=== PATIENT | male | born 1960 | race Caucasian/White ===

== ENCOUNTER → 2020-02-09 09:08 | Outpatient (BNVA) | payer OTHER, SELFPAY | PROVIDERS: PCP Internal Medicine; Referring Provider Internal Medicine; Visit Provider Hospitalist | DX: J44.9 Chronic obstructive pulmonary disease, unspecified (principal); J96.10 Chronic respiratory failure, unspecified whether with hypoxia or hypercapnia; R91.8 Other nonspecific abnormal finding of lung field; F17.210 Nicotine dependence, cigarettes, uncomplicated; Z79.899 Other long term (current) drug therapy; Z71.6 Tobacco abuse counseling | CPT/HCPCS: 99212 ==

== ENCOUNTER 2020-07-05 11:02 | Outpatient (REF) | payer OTHER, SELFPAY ==
--- NOTE | ~2020-07-05 | CT_ITS ---
EXAMINATION: CT CHEST WITHOUT CONTRAST CLINICAL INFORMATION: Other nonspecific abnormal finding lung field COMPARISON: None TECHNIQUE: Multidetector volumetric CT imaging of the chest was done. Axial MIP volume rendering provided. Sagittal and coronal reformatted images were obtained. This CT examination was performed using dose optimization techniques as appropriate, variously including the following: *Automated exposure control *Adjustment of mA and/or kV according to patient size (this includes techniques or standardized protocols for targeted exams where dose is matched to indication/reason for exam; i.e. 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 LUNGS: There is mild biapical pleural and parenchymal scarring. There are multiple bilateral pulmonary nodules. Largest pulmonary nodules measure 4 mm in the right lung apex axial image 73 series 4 and in the left lower lobe axial image 442 series 4. There are small lung cysts. There are focal areas of bronchiectasis. There are scattered areas of bronchial wall thickening and increased peribronchial attenuation. There is a thick walled cavitary nodule in the left upper lobe that measures 1 x 1.3 x 2 cm in AP transverse and longitudinal dimension axial image 177 series 4 and coronal reconstructed image 47. Cavitary component may be related to bronchial dilatation. Attention on follow-up is recommended. There are other smaller similar-appearing MEDIASTINUM: The mediastinum is normal. PLEURA: There is no pleural effusion. No pleural mass or thickening. AXILLA: No lymphadenopathy. UPPER ABDOMEN: Unremarkable. OSSEOUS STRUCTURES: Unremarkable. CT/CT chest wo con IMPRESSION: Small pulmonary nodules, largest measuring 4 mm. Small lung cysts. Scattered areas of focal bronchiectasis and bronchial wall thickening. 1 x 1.3 x 2 cm thick-walled cavitary left upper lobe pulmonary nodule. Cavitary appearance may be related to focal bronchiectasis. Attention on follow-up recommended.
== END 2020-07-05 11:03 | disposition home or self-care (01) ==
LOC: HO.CT 11:02
PROVIDERS: PCP Internal Medicine; Visit Provider Hospitalist
DX: R91.8 Other nonspecific abnormal finding of lung field (principal)
CPT/HCPCS: 71250

== ENCOUNTER 2020-07-22 08:47 | Outpatient (REF) | payer OTHER, SELFPAY ==
--- NOTE | 2020-07-22 12:58 | PFT_ITS ---
Forced vital capacity is normal. FEV1, [id number], and MVV were markedly decreased. Bronchodilator challenge not given because the patient had used albuterol a few hours prior to the test. Total lung capacity, normal. Residual volume slightly increased. Diffusion capacity is slightly decreased. CONCLUSION: 1. Severe obstructive airway disorder. 2. Clinical correlation recommended. MD ALEXI Crouch/UMANG / [id number]
== END 2020-07-22 08:48 | disposition home or self-care (01) ==
LOC: HO.RESP 08:47
PROVIDERS: PCP Internal Medicine; Visit Provider Hospitalist
DX: R91.8 Other nonspecific abnormal finding of lung field (principal); J44.9 Chronic obstructive pulmonary disease, unspecified
CPT/HCPCS: 94010; 94727; 94729; 99212

== ENCOUNTER 2021-01-05 10:39 | Outpatient (REF) | payer OTHER, SELFPAY ==
--- NOTE | ~2021-01-05 | CT_ITS ---
EXAMINATION: CT CHEST WITHOUT CONTRAST CLINICAL INFORMATION: Follow up pulmonary nodules. COMPARISON: Previous chest CT scan June 2020. TECHNIQUE: Multidetector volumetric CT imaging of the chest was done. Axial MIP volume rendering provided. Sagittal and coronal reformatted images were obtained. This CT examination was performed using dose optimization techniques as appropriate, variously including the following: *Automated exposure control *Adjustment of mA and/or kV according to patient size (this includes techniques or standardized protocols for targeted exams where dose is matched to indication/reason for exam; i.e. extremities or head) *Use of iterative reconstruction technique DLP: 172 mGy-cm FINDINGS: LUNGS: There is biapical pleural and parenchymal scarring. There are multiple small bilateral pulmonary nodules. These do not appear appreciably changed from June 2020 exam. Largest pulmonary nodules measure 4 mm in the left lower lobe axial image 377 and right upper lobe axial image 75 series 6. There are small calcified nodules in the right upper and right lower lobes that are stable. There are small lung cysts. Lung cysts may be related to dilated bronchioles. There is interval decrease in size in the thick-walled cavitary nodule in the central left upper lobe. Again, this may be related to focal bronchial dilatation. This measures 0.4 x 1.1 cm in transverse and longitudinal dimension coronal reconstructed image 48 compared to 0.9 x 1.6 cm coronal reconstructed image 46 series 5 and 4 mm in AP dimension sagittal reconstructed image 46 compared to 1.1 cm in AP dimension sagittal reconstructed image 39 series 6. There is a new more apparent solid nodular component or possibly a new nodule or intrapulmonary lymph node that measures approximately 5 mm axial image 153 series 6 and attention on follow-up is recommended. No new pulmonary nodule is seen. No endobronchial or endotracheal lesion is seen. MEDIASTINUM: There are small mediastinal lymph nodes that are stable. The heart does not appear enlarged. There is no pericardial effusion. The thoracic aorta is normal in caliber. The pulmonary arteries are upper normal in size. PLEURA: There is no pleural effusion. No pleural mass or thickening. AXILLA: No lymphadenopathy. UPPER ABDOMEN: There is a small small 1 cm low-attenuation lesion in the lateral segment of the left lobe of the liver axial image 68 series 3 that is stable and may represent a small cyst. There is diverticulosis of the colon. OSSEOUS STRUCTURES: Unremarkable. CT/CT chest wo con IMPRESSION: Stable biapical pleural and parenchymal scarring. Stable small pulmonary nodules. Stable small cystic areas in the lungs likely related to focal bronchiolectasis. Interval decrease in size in the dominant cavitary lesion probably related to focal bronchiectasis in the left upper lobe. This has a new or more apparent solid component measuring 5 mm and attention on follow-up is recommended.
== END 2021-01-05 10:40 | disposition home or self-care (01) ==
LOC: HO.CT 10:39
PROVIDERS: PCP Internal Medicine; Visit Provider Hospitalist
DX: R91.8 Other nonspecific abnormal finding of lung field (principal)
CPT/HCPCS: 71250

== ENCOUNTER → 2021-02-04 13:38 | Outpatient (BNVA) | payer OTHER, SELFPAY | PROVIDERS: PCP Internal Medicine; Visit Provider Hospitalist | DX: J96.11 Chronic respiratory failure with hypoxia (principal); J41.0 Simple chronic bronchitis; R91.8 Other nonspecific abnormal finding of lung field; F17.200 Nicotine dependence, unspecified, uncomplicated | CPT/HCPCS: 99212 ==

== ENCOUNTER → 2022-02-02 15:33 | Outpatient (BNVA) | payer OTHER, SELFPAY | PROVIDERS: PCP Internal Medicine; Visit Provider Hospitalist | DX: Z23 Encounter for immunization (principal) | CPT/HCPCS: 90471; 90686 ==

== ENCOUNTER 2022-06-02 10:16 | Outpatient (REF) | payer MEDICARE, MEDICAID, SELFPAY ==
--- NOTE | ~2022-06-02 | CT_ITS ---
EXAMINATION: CT CHEST WITHOUT CONTRAST CLINICAL INFORMATION: R91.8 - Other nonspecific abnormal finding of lung field COMPARISON: CT chest noncontrast 01/05/2021, 07/05/2020 TECHNIQUE: Multidetector volumetric CT imaging of the chest is performed without intravenous contrast. Axial MIP volume rendering provided. Sagittal and coronal reformatted images were obtained. This CT examination was performed using dose optimization techniques as appropriate, variously including the following: *Automated exposure control *Adjustment of mA and/or kV according to patient size (this includes techniques or standardized protocols for targeted exams where dose is matched to indication/reason for exam; i.e. extremities or head) *Use of iterative reconstruction technique DLP: 315 mGy-cm FINDINGS: LUNGS: There are scattered bilateral small stable pulmonary nodularity, some are related to calcified granulomata, stable from 07/05/2020. The 5 mm solid opacity for follow-up central inner left upper lobe, appears stable from prior study 01/05/2021 (current series 4 image 141/667, coronal 45, sagittal 52). There is no surrounding groundglass component. This resides in an area of branching vessels and some of the dimension is likely vascular. There is no increase or suspicious changes from prior CT. This may be reassessed again at next follow-up CT. There is no interval bronchiectasis. Again, there are scattered small bilateral cystic foci throughout both lungs. There is no airspace consolidation or interval groundglass opacity. No interval pulmonary mass or significant nodule. MEDIASTINUM: No interval hilar or mediastinal adenopathy. Heart size normal. No pericardial effusion. Thoracic aorta normal in caliber. CORONARY ARTERY CALCIFICATION: None visualized on this study. PLEURA: There is no pleural effusion. No pleural mass or thickening. AXILLA: No lymphadenopathy. UPPER ABDOMEN: Unremarkable. Small stable subcapsular cyst medial left hepatic lobe. OSSEOUS STRUCTURES: Unremarkable. CT/CT chest wo IV con IMPRESSION: -Nodule for follow-up central inner left upper lobe stable from prior CT 01/05/2021. -Scattered bilateral pulmonary nodularity stable from prior CT 07/05/2020. -No new nodule or mass, infiltrate, or effusion. -Scattered small pulmonary cystic changes similar to prior exams. -Fleischner guidelines below. Reference: The Fleischner Society recommendations for management of incidentally detected pulmonary nodules in adults age 35 and greater are based on average nodule size and patient risk category. The recommendations do not apply to lung cancer screening, patients with immunosuppression, or patients with known primary cancer. Multiple solid nodules average size < 6 mm: Low Risk Patient: No routine follow-up. High Risk Patient: Optional CT at 12 months. Use most suspicious nodule as guide to management. Follow-up intervals may vary according to size and risk.
== END 2022-06-02 10:17 | disposition home or self-care (01) ==
LOC: HO.CT 10:16
PROVIDERS: PCP Internal Medicine; Visit Provider Hospitalist
DX: R91.8 Other nonspecific abnormal finding of lung field (principal)
CPT/HCPCS: 71250

== ENCOUNTER → 2022-06-13 11:07 | Outpatient (BNVA) | payer MEDICARE, MEDICAID, SELFPAY | PROVIDERS: PCP Internal Medicine; Visit Provider Hospitalist | DX: R91.8 Other nonspecific abnormal finding of lung field (principal); J96.11 Chronic respiratory failure with hypoxia; J41.0 Simple chronic bronchitis; F17.200 Nicotine dependence, unspecified, uncomplicated | CPT/HCPCS: 94618; 99212 ==

== ENCOUNTER 2024-01-01 10:56 | Outpatient (AMB) | payer MEDICARE, MEDICAID, SELFPAY ==
[2024-01-01 11:03] VITALS: BP 128/60; PULSE 67; O2SAT 95; BMI 24.8
--- NOTE | 2024-01-01 11:03 | A.OFFVIS_ITS ---
Vital Signs 01/01/24 11:03 Height 6 ft 2 in Weight 192 lb 14.472 oz BMI 24.8 BP 128/60 Blood Pressure Location Rt brachial Position Sitting Pulse 67 Pulse Source Pulse Oximeter Pulse Oximetry (%) 95 Oxygen Delivery Method Room Air Intake Visit Reasons: copd Software Requirements Engineer Required: No Allergies Dust Allergy (Severe, Uncoded 01/01/24 11:05) Shortness of Breath Pollen Allergy (Severe, Uncoded 01/01/24 11:05) Shortness of Breath HPI Comments Details: The patient is a 63-year-old gentleman with known severe COPD in addition to active smoking. The patient has been doing well for the last few months. Back in the spring he did have a significant exacerbation of his COPD requiring prednisone and also antibiotics. He was able to return to his baseline. He does have productive cough usually in the morning. [id number] in severity. Does clear. He also has dyspnea on exertion mild to moderate with activity. Does improve after using use inhalers and also resting. Continues to take his respiratory therapy as prescribed. We did talk about smoking cessation offered different options and alternatives to smoking such as the Nicotrol inhaler or the nasal spray. However, the patient is not ready to quit. He was also offered the lung cancer screening program S the will be a very good candidate based on his smoking history and his age. However, the patient is not interested at this time. 02/09/2020 the patient is here for pulmonary follow-up visit. He continues to have dyspnea on exertion. Moderate severity. Does continue to use the oxygen with good effect. Has been using the trilogy inhaler. Sometimes he feels like he needs more steroids. We did talk about the stronger does trilogy that did come out. At this point is going to think about it. In the meantime he continues to smoke cigarettes. He understands how much harm this is doing to his body. He is going to try to cut down further. He is not ready to quit completely unfortunately. We did review his last CT scan of the chest done back in June 2018 demonstrating multiple pulmonary nodules. In view of his ongoing smoking the patient needs to have does nodules tree checked again. Plan to do in 6 months with his follow-up appointment. In the meantime he is going to continue with the oxygen therapy with activity. I did recommend that he starts exercising more along with the oxygen use to further strengthen his respiratory muscles. 07/22/2020 the patient is here for pulmonary follow-up visit. The patient overall has been doing okay. He continues to have shortness of breath moderate severity. He is still enjoying the chemo golf. He does use a cart. The patient did have a pulmonary function study today. Appears to have a severe obstruction. In addition to that did have a CT scan of the chest demonstrating at cavitary looking nodule density in the left upper lobe. This area could be concerning for a malignancy verses a focal area of bronchiectasis with mucous blockage. At this point we did discuss different options to further address this issue. The patient is not interested in undergoing any surgeries. The patient is interested in the possibility of stereotactic radiation if that is needed. The patient is willing to have a repeat CT scan of the chest in 6 months to further address this area. If the patient develops any worsening symptoms the patient is to call so we can address it sooner. Patient understands that this is a concerning finding. 02/04/2021 the patient is here for a pulmonary follow-up visit. Overall the patient has been doing well. He continues to stay active playing golf. He had 1 episode where he started developing significant chest tightness and shortness of breath. He did require short course of prednisone. He was also using his rescue inhaler several times a day for those couple days. His symptoms improved. At this point he is back to his baseline medications. He is trying to stay active playing golf. In the meantime he did have a repeat CT scan of the chest that we personally reviewed here in the office. He did have a cavitar y nodular density that was concerning in nature. On his repeat CT scan is seems like the cavity component has decreased name may have been a cross-sectional airway within the nodular density. The nodule still present although seems to be slightly smaller in size. The patient unfortunately continues to smoke cigarettes. He is trying to cut down some. He is not ready to quit. based on the CT scan findings will follow-up with repeat CT scan in 1 years time. Unless, the patient develops any worsening symptoms he is to call for an earlier evaluation. 02/02/2022 the patient is here for pulmonary follow-up visit. Overall the patient continues to do well. He continues to walk regularly and also played golf. he continues to respond positively to the Trelegy. He does use it as pre scribed. The patient also has a rescue inhaler. The generic albuterol does not help him as much as Ventolin. I will send Ventolin now substitutions to the pharmacy. We did review his last CT scan of the chest. Was done back in February 2021 demonstrating the interval improvement of the cavitary nodular density and also other pulmonary nodules. He is due for CT scan now. He would like to wait till the springtime. Therefore, will request that then. the patient understands that his CT scan should be done a year from his last 1. Therefore if he changes his mind or if he develops any symptoms we can always requested earlier. Otherwise patient is without any other complaints. 06/13/2021 the patient is here for a pulmonary follow-up visit. The patient overall continues to do well for himself. Continues to have dyspnea with minimal activity. He does try to play golf. He has a hard time going up a flight of stairs or going up an incline. Does developed shortness of breath mo derate severity. Usually needs take a break after flight of stairs. The patient does have oxygen that he can use with activity. In the office we did check his oxygen levels with a 6 minute walk test. The patient still desaturates when exerting herself down to 88%. Therefore he will continue to use the oxygen with activity at this time. He did undergo CT scan of the chest demonstrating stable pulmonary nodule which is reassuring. He does have the evidence of the emphysematous changes. He also has significant was a pattern likely secondary to small airways disease. As far as smoking he did try cutting down for about a week. He did well but then he started developing significant arthralgias and then decided to go back to smoking. His arthritis symptoms did improve when he started up again. 01/01/2024 the patient is here for a pulmonary follow-up visit. Overall he is doing well. Back in October, however, the patient did have a respiratory illness. The patient was having worsening chest congestion shortness of breath wheezing chest tightness. Moderate severity. He did start using the nebulizer more often and also had a or prescription for azithromycin and prednisone he did started. He did start feeling better and so therefore he did not call. Currently he is back to his baseline. We did look at imaging studies. His last CT scan through the lung cancer screening was back in 06/12/2022. We did review it. Appears that he has pulmonary nodules although the been stable. He does have some emphysema. He would like to hold off until spring to get his repeat CT scan. I think that is reasonable. I will reach out to the lung cancer screening program to make sure that they can schedule him for then. Otherwise she is going to continue with his current respiratory therapy. He will get the flu shot today. He should also get the Prevnar 20 vaccine. He can do that at the pharmacy at some point. [facility] Medical History (Updated 07/22/20 @ 19:46 by Isaias Gray MD) Tobacco dependence Pulmonary nodules Chronic respiratory failure COPD (chronic obstructive pulmonary disease) Social History (Updated 02/09/20 @ 09:18 by CLEMENTE Bailey) Years Smoked: 50 years Review of Systems Const Denies night sweats ENT Denies change in voice, Denies lip swelling, Denies mouth pain, Reports nasal congestion, Reports nasal discharge and Denies tongue swelling Card Denies chest pain and Reports dyspnea on exertion Resp Reports cough and Reports dyspnea on exertion GI Denies abdominal pain Musc Denies no additional complaints Neuro Denies Neuro-related abnormal movements Psych Denies no additional complaints [place]/Lymph Denies easy bleeding and Denies lymphadenopathy Aller/Immun Denies lip swelling and Denies tongue swelling Physical Exam Vital Signs: Last Vital Signs Pulse 67 01/01/24 11:03 BP 128/60 01/01/24 11:03 Pulse Ox 95 01/01/24 11:03 Oxygen Delivery Method Room Air 01/01/24 11:03 BMI result Body Mass Index 24.8 Const General: alert Neck Neck: Yes normal visual inspection, Yes full ROM and Yes no lymphadenopathy Chest Chest palpation & inspection: normal inspection of the chest Resp Effort & Inspection: normal respiratory effort Auscultation: diminished lung sounds Cardio Rate: regular rate Rhythm: regular rhythm Heart sounds: S1 normal heart sound present and S2 normal heart sound present GI Palpation (GI): Soft to palpation and nontender Auscultation: normal bowel sounds Skin General skin exam: rashes and/or lesions noted Office Procedures Flu Questionnaire Does the patient have a severe egg allergy?: No Does the patient have severe life threatening allergies?: No Does the patient have a fever or illness today?: No Has the patient ever had Guillain-Laurel Syndrome?: No Has the patient ever had any past reaction to a flu shot?: No Quality Reporting (2019) Adult ([facility] 138/05/17/68) Smoking risk assessment performed?: Yes Assessment & Plan Assessment & Plan (1) Tobacco dependence: Code(s): F17.200 - Nicotine dependence, unspecified, uncomplicated Category: Medical (2) Pulmonary nodules: Code(s): R91.8 - Other nonspecific abnormal finding of lung field Category: Medical (3) Chronic respiratory failure: Code(s): J96.10 - Chronic respiratory failure, unspecified whether with hypoxia or hypercapnia Category: Medical Qualifiers: Respiratory failure complication: hypoxia Qualified Code(s): J96.11 - Chronic respiratory failure with hypoxia (4) COPD (chronic obstructive pulmonary disease): Code(s): J44.9 - Chronic obstructive pulmonary disease, unspecified Category: Medical Qualifiers: COPD type: chronic bronchitis Chronic bronchitis type: simple Qualified Code(s): J41.0 - Simple chronic bronchitis Plan Continue respiratory : Trelegy PEYTON as needed LDCT program next year 05/2024 per pt's request Tobacco cessation start Fluticasone nasal spray continue oxygen supplementation with activity and sleep Influenza vaccine today Prevnar 20 vaccine at the pharmacy F/U 12 months Orders: Orders Influenza [id number] Immunization Today J41.0 - Simple chronic bronchitis Medications: New prednisone PO daily; Take 2 tabs daily x 5 days, then 1 tablet daily x 5 days 15 tabs 0RF 10 days azithromycin 500 mg PO DAILY 5 tabs 0RF 5 days albuterol sulfate 90 mcg/actuation (Ventolin HFA) 2 puffs inhalation QID PRN 18 grams 11RF shortness of breath or wheezing 30 days fluticasone propionate 50 mcg/actuation 2 sprays intranasal DAILY 15.8 mL 11RF 30 days J31.0 - Chronic rhinitis Coding Level of Care Code Est Pt Level 4 (92710) Diagnoses Tobacco dependence F17.200 Pulmonary nodules R91.8 Chronic respiratory failure with hypoxia J96.11 Respiratory failure complication: hypoxia Simple chronic bronchitis J41.0 COPD type: chronic bronchitis Chronic bronchitis type: simple Time Spent (min) 17
== END 2024-01-01 11:34 | disposition home or self-care (01) ==
PROVIDERS: PCP Internal Medicine; Visit Provider Hospitalist
DX: F17.200 Nicotine dependence, unspecified, uncomplicated (principal); R91.8 Other nonspecific abnormal finding of lung field; J96.11 Chronic respiratory failure with hypoxia; J41.0 Simple chronic bronchitis
CPT/HCPCS: 99214

== ENCOUNTER → 2024-01-01 10:56 | Outpatient (BNVA) | payer MEDICARE, MEDICAID, SELFPAY | PROVIDERS: PCP Internal Medicine; Visit Provider Hospitalist | DX: J41.0 Simple chronic bronchitis (principal); Z23 Encounter for immunization; J96.11 Chronic respiratory failure with hypoxia; R91.8 Other nonspecific abnormal finding of lung field; F17.210 Nicotine dependence, cigarettes, uncomplicated | CPT/HCPCS: 90471; 90656; 99212 ==

== ENCOUNTER 2024-06-27 10:06 | Outpatient (AMB) | payer MEDICARE, MEDICAID, SELFPAY ==
--- NOTE | 2024-06-27 08:02 | MHC.OFFVIS ---
Intake Visit Reasons: Current Smoker Allergies Dust Allergy (Severe, Uncoded 01/01/24 11:05) Shortness of Breath Pollen Allergy (Severe, Uncoded 01/01/24 11:05) Shortness of Breath HPI HPI Current Smoker: Details: Initial visit for this 64yo smoker with a 40+PYH. Patient started smoking at age 14 for 50 years at 1ppd. Now at 3/4ppd. . Denies marijuana use. Denies second hand smoke exposure. Denies exposure to chemicals or substances like asbestos. . Denies known family history of lung cancer. Personal history of Prostate cancer - age 50. S/p Radical prostatectomy with curative effect. . Denies chest CT in last year. 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 . Denies recent travel outside the [place]. Denies recent respiratory illness or recent hospitalization for respiratory issues. Denies testing positive for COVID. Admits receiving COVID Vaccine. . Denies fever, chills, new/worsening cough, hemoptysis, hoarseness or dysphagia. Denies significant chest pain, significant dyspnea or unintentional weight loss. Patient Lung Cancer Screening Questionnaire reviewed with patient by provider. . Shared Decision Making Completed. Patient meets criteria. Discussed in detail with patient, the risk vs benefit of LDCT screening. Patient consents to proceed with scan. Discussed smoking cessation. PFSH Medical History (Updated 06/27/24 @ 10:19 by Sonia Pedro PA-C) History of prostate cancer Hypogammaglobulinemia Hypertension Hyperlipidemia Pulmonary nodules Chronic respiratory failure COPD (chronic obstructive pulmonary disease) Nicotine dependence, cigarettes, uncomplicated Hemorrhoids Surgical History (Updated 06/27/24 @ 10:18 by Sonia Pedro PA-C) History of radical prostatectomy History of appendectomy History of tonsillectomy Social History (Updated 06/27/24 @ 10:25 by Sonia Pedro PA-C) Patient Tobacco Use Status: Current everyday Tobacco user Cigarettes Per Day: 12 Years Smoked: (onset 14yo, 1ppd x 50yrs, now 3/4ppd - 40+PYH) Assessment & Plan Assessment & Plan (1) Nicotine dependence, cigarettes, uncomplicated: Comment: (onset 14yo, 1ppd x 50yrs, now 3/4ppd - 40+PYH) Code(s): F17.210 - Nicotine dependence, cigarettes, uncomplicated Category: Medical Plan: - SDM visit completed today in office. - Patient meets criteria for LDCT for lung cancer screening purposes and is asymptomatic. - Smoking cessation counseling offered. Patients can always call [phone]. - Will arrange for a LDCT scan of the chest for screening purposes at [facility]. - Risks, benefits, and alternatives were discussed in detail and the patient agrees to proceed. - Risks discussed include but are not limited to: radiation exposure, anxiety during testing and while awaiting results, false negatives, false positives and possibility of additional intervention such as further imaging or surgical procedures for benign disease. - Benefits are obviously detection of lung cancer at an early stage which can lead to improved outcomes. - Discussed the importance of screening program compliance with adherence to yearly LDCT scan as scheduled - or sooner interval scans for personalized screening regimen. - Discussed follow up plan. Our office will send a letter discussing results and if needed set up phone call and office visit based on CT findings. - Patient educated on results categorization and the management decisions for suspicious findings potentially found on the screening LDCT scan. Any patient with a Lung RADS score of 3 or 4 will be reviewed by a multidisciplinary team at [facility] to form a plan of action in regards to scan findings. - If further work up is warranted for a suspicious lung finding this will be followed by the Lung Cancer Screening program in conjunction with the Thoracic Surgery Department at [facility]. - A copy of the office note and LDCT will be sent to the patient's PCP - as well as documentation on any associated further plans of care. - Incidental findings on LDCT are the PCP's responsibility. These findings are indicated with an S finding on the LDCT Assessment. A note discussing the findings will be sent to the PCP who is then responsible for further management. - All questions answered.? Coding Level of Care Code Lung Cancer Screening G0296 Diagnoses Nicotine dependence, cigarettes, uncomplicated F17.210
--- OUTSIDE RECORDS SUMMARY | 2024-06-27 11:31 | XMS_ITS | Clinical Summary ---
Author Organization [facility], Address [address] [place] [address] [place] [address] Phone Care Team Providers Care Checking Department Supervisor Name Role Phone Domenic Nur MD Primary Care Provider [phone] Medications sildenafil (VIAGRA) 100 MG tablet Take 1 tablet by mouth 4 Active amLODIPine (NORVASC) 10 MG tablet Take 10 mg by mouth 1 (one) time each day Active atorvastatin (LIPITOR) 40 MG tablet Take 40 mg by mouth 1 (one) time each day Active Fluticasone-Ume clidin-Vilant 200-62.5-25 MCG/INH aerosol powder Inhale 1 puff 1 (one) time each day Active aspirin 81 MG chewable tablet Chew 81 mg 1 (one) time each day Active albuterol (2.5 MG/3ML) 0.083% nebulizer solution USE 1 VIAL VIA NEBULZIER EVERY 6 HRS 3 Active Active Problems Problem Noted Date Diagnosed Date Hyperkalemia 10/18/2021 Asthma 02/24/2014 Overview (10/18/2021): Asthma Malignant neoplasm of prostate 02/27/2012 Overview (10/18/2021): Prostate cancer Social History Tobacco Use Types Packs/Day Years Used Date Smoking Tobacco: Every Day Alcohol Use Standard Drinks/Week Comments No 0 (1 standard drink = 0.6 oz pur e alcohol) Sex and Gender Information Value Date Recorded Sex Assigned at Not on file Legal Sex Male 3:53 PM EST Gender Identity Not on file Sexual Orientation Not on file Last Filed Vital Signs Vital Sign Reading Time Taken Comments Blood Pressure 120/70 10/15/2023 2:07 PM EDT Pulse - - Temperature - - Respiratory Rate - - Oxygen Saturation - - Inhaled Oxygen Concentration - - Weight 102 kg (224 lb 12.8 oz) 02/19/2019 12:00 PM EST Height - - Body Mass Index - - Plan of Treatment Upcoming Encounters Date Type Department Care Team (Late st Contact Info) Description 10/17/2024 1:45 PM EDT Office Visit [facility], [address] [place] [address] Bahman Cantu MD [address] [place] [address] [place] [address] Health Maintenance Due Date Last Done Comments Pneumococcal Vaccine: Pediat rics (0 to 5 Years) and At-Risk Patients (6 to 64 Years) (1 of 2 - PCV) 1968 Colorectal Cancer Screening: Annual FOBT 2011 Colorectal Cancer Screening: Colonoscopy 2011 Colorectal Cancer Screening: Sigmoidoscopy 2011 Influenza Vaccine (#1) 2023 Hepatitis B Vaccine Aged Out No longe r eligible based on patient's age to complete this topic Insurance [place]ICAID [place] MEDICARE Care Teams Checking Department Supervisor Relationship Specialty Start Date End Date Domenic Nur MD [address] [place] [address] [address] [place] [address] PCP - General Internal Medicine 11/04/21
--- OUTSIDE RECORDS SUMMARY | 2024-06-27 11:31 | XMS_ITS | Encounter Summary ---
Author Organization [facility] Address [address] [address] Phone Care Team Providers Care Buildings And Grounds Superintendent Name Role Phone Domenic Nur MD Primary Care Provider [phone] Encounter Details Date Type Department Care Team (Late st Contact Info) Description 02/02/2022 Documentation Only [facility] [address] [place] [address] Marybeth Lopez [address] [place] [address] Social History Tobacco Use Types Packs/Day Years Used Date Smoking Tobacco: Every Day Alcohol Use Standard Drinks/Week Comments No 0 (1 standard drink = 0.6 oz pur e alcohol) Sex and Gender Information Value Date Recorded Sex Assigned at Not on file Legal Sex Male 3:53 PM EST Gender Identity Not on file Sexual Orientation Not on file documented as of this encounter Plan of Treatment Upcoming Encounters Date Type Department Care Team (Late st Contact Info) Description 10/17/2024 1:45 PM EDT Office Visit [facility] [address] [place] [address] Bahman Cantu MD [address] [place] [address] [place] [address] documented as of this encounter Visit Diagnoses Not on filedocumented in this encounter Care Teams Buildings And Grounds Superintendent Relationship Specialty Start Date End Date Domenic Nur MD [address] [facility] [address] [place] [address] PCP - General Internal Medicine 11/04/21 documented as of this encounter
== END 2024-06-27 10:41 | disposition home or self-care (01) ==
LOC: HO.HPS 10:07
PROVIDERS: PCP Internal Medicine; Referring Provider Hospitalist; Visit Provider Physician Assistant Medical
DX: F17.210 Nicotine dependence, cigarettes, uncomplicated (principal)
CPT/HCPCS: G0296

== ENCOUNTER 2024-06-27 10:24 | Outpatient (REF) | payer MEDICARE, MEDICAID, SELFPAY ==
--- NOTE | ~2024-06-27 | CT_ITS ---
CLINICAL HISTORY: F17.210 - Nicotine dependence, cigarettes, uncomplicated CT lung cancer screening Technique: Axial CT images of the chest using low-dose technique. Effective radiation dose: DLP 51.1 mGy. Cm, CTDIvol 1.14 mGy Referring provider counseled the patient on shared decision-making for LDCT screening. Additional counseling was provided on smoking cessation. Comparison: 06/02/2022 Findings: Lung nodules RUL: None RML: None RLL: Stable 2 mm nodule image 132. DOTTY: 5 mm peribronchial solid nodular opacity central inner left upper lobe stable from prior exam ( sequence 5 axial image number 143/667 ) Lingula: None LLL: Stable 2 mm nodule image 118. COPD: Centrilobular emphysema. Pleural spaces: Stable biapical pleural-parenchymal scarring. Coronary artery calcifications: None Limited upper abdomen: Stable subcentimeter probable hepatic cyst left lobe. Other: None. Impression: LungRADS 2 - Benign Appearance: Continue annual screening with low dose Chest CT in 12 months. ##L2# ACR LungRADS Categories Category 1: Normal; continue annual screening Category 2: Benign appearance or behavior, continue annual screening Category 3: Probably benign, [address] recommended Category 4A: Suspicious, [address] recommended; may consider PET/CT Category 4B: Suspicious, Additional diagnostics and/or tissue sampling recommended Category 4X: Suspicious, Additional diagnostics and/or tissue sampling Category 0: Recalls (incomplete screen due to Incomplete coverage, Noise, Respiratory motion, Expiration, Obscured by acute abnormality) This document has been electronically signed by: Ravin Judge MD on 06/27/2024 17:21:36
--- OUTSIDE RECORDS SUMMARY | 2024-06-27 11:51 | XMS_ITS | Clinical Summary ---
Author Organization [facility], Address [address] [place] [address] [place] [address] Phone Care Team Providers Care Rivet Sorter Name Role Phone Domenic Nur MD Primary Care Provider [phone] Medications sildenafil (VIAGRA) 100 MG tablet Take [...] Visit [facility] [place], [address] [place] [address] Bahman Cantu MD [address] [place] [address] [place] [address] Health Maintenance Due Date Last [...] topic Insurance [place] Care Teams Rivet Sorter Relationship Specialty Start Date End Date Domenic Nur MD [address] [place] [address] [address] [place] [address] PCP - General Internal Medicine 11/04/21
--- OUTSIDE RECORDS SUMMARY | 2024-06-27 11:51 | XMS_ITS | Encounter Summary ---
Author Organization [facility] Address [address] [address] Phone Care Team Providers Care District Adviser Name Role Phone Domenic Nur MD Primary Care Provider [phone] Encounter Details Date Type Department Care Team (Late st Contact Info) Description 02/02/2022 Documentation Only [facility] [address] [place] [address] Marybeth Lopez [address] [place] [address] Social History Tobacco Use Types [...] Visit [facility] [address] [place] [address] Bahman Cantu MD [address] [place] [address] [place] [address] documented as of this encounter Visit Diagnoses Not on filedocumented in this encounter Care Teams District Adviser Relationship Specialty Start Date End Date Domenic Nur MD [address] [facility] [address] [place] [address] PCP - General Internal Medicine 11/04/21 documented as of this encounter
== END 2024-06-27 10:25 | disposition home or self-care (01) ==
LOC: HO.CT 10:24
PROVIDERS: PCP Internal Medicine; Visit Provider Physician Assistant Medical
DX: Z12.2 Encounter for screening for malignant neoplasm of respiratory organs (principal); F17.210 Nicotine dependence, cigarettes, uncomplicated
CPT/HCPCS: 71271; G0296

== ENCOUNTER → 2024-06-27 10:27 | Outpatient (BNV) | payer MEDICARE, MEDICAID, SELFPAY | PROVIDERS: PCP Internal Medicine; Visit Provider Radiology Diagnostic Radiology | DX: F17.210 Nicotine dependence, cigarettes, uncomplicated (principal) | CPT/HCPCS: 71271 ==

== ENCOUNTER 2024-12-30 10:51 | Outpatient (AMB) | payer MEDICARE, MEDICAID, SELFPAY ==
--- NOTE | 2024-12-30 10:53 | MHC.OFFVIS ---
Vital Signs 12/30/24 10:55 Height 6 ft 2 in Weight 194 lb 0.108 oz BMI 24.9 BP 138/84 Blood Pressure Location Lt brachial Position Sitting Pulse 94 Pulse Source Pulse Oximeter Pulse Oximetry (%) 95 Oxygen Delivery Method Room Air Intake Visit Reasons: COPD Talent Program Manager Required: No Accompanied by: Self / Same As Patient Allergies Dust Allergy (Severe, Uncoded 01/01/24 11:05) Shortness of Breath Pollen Allergy (Severe, Uncoded 01/01/24 11:05) Shortness of Breath HPI Comments Details: The patient is a 64-year-old gentleman with known severe COPD in addition to active smoking. The patient has been doing well for the last few months. Back in the spring he did have a significant exacerbation of his COPD requiring prednisone and also antibiotics. He was able to return to his baseline. He does have productive cough usually in the morning. Yyqz-wo-qmbiculr in severity. Does clear. He also has dyspnea on exertion mild to moderate with activity. Does improve after using use inhalers and also resting. Continues to take his respiratory therapy as prescribed. We did talk about smoking cessation offered different options and alternatives to smoking such as the Nicotrol inhaler or the nasal spray. However, the patient is not ready to quit. He was also offered the lung cancer screening program S the will be a very good candidate based on his smoking history and his age. However, the patient is not interested at this time. 02/09/2020 the patient is here for pulmonary follow-up visit. He continues to have dyspnea on exertion. Moderate severity. Does continue to use the oxygen with good effect. Has been using the trilogy inhaler. Sometimes he feels like he needs more steroids. We did talk about the stronger does trilogy that did come out. At this point is going to think about it. In the meantime he continues to smoke cigarettes. He understands how much harm this is doing to his body. He is going to try to cut down further. He is not ready to quit completely unfortunately. We did review his last CT scan of the chest done back in June 2018 demonstrating multiple pulmonary nodules. In view of his ongoing smoking the patient needs to have does nodules tree checked again. Plan to do in 6 months with his follow-up appointment. In the meantime he is going to continue with the oxygen therapy with activity. I did recommend that he starts exercising more along with the oxygen use to further strengthen his respiratory muscles. 07/22/2020 the patient is here for pulmonary follow-up visit. The patient overall has been doing okay. He continues to have shortness of breath moderate severity. He is still enjoying the chemo golf. He does use a cart. The patient did have a pulmonary function study today. Appears to have a severe obstruction. In addition to that did have a CT scan of the chest demonstrating at cavitary looking nodule density in the left upper lobe. This area could be concerning for a malignancy verses a focal area of bronchiectasis with mucous blockage. At this point we did discuss different options to further address this issue. The patient is not interested in undergoing any surgeries. The patient is interested in the possibility of stereotactic radiation if that is needed. The patient is willing to have a repeat CT scan of the chest in 6 months to further address this area. If the patient develops any worsening symptoms the patient is to call so we can address it sooner. Patient understands that this is a concerning finding. 02/04/2021 the patient is here for a pulmonary follow-up visit. Overall the patient has been doing well. He continues to stay active playing golf. He had 1 episode where he started developing significant chest tightness and shortness of breath. He did require short course of prednisone. He was also using his rescue inhaler several times a day for those couple days. His symptoms improved. At this point he is back to his baseline medications. He is trying to stay active playing golf. In the meantime he did have a repeat CT scan of the chest that we personally reviewed here in the office. He did have a cavitary nodular density that was concerning in nature. On his repeat CT scan is seems like the cavity component has decreased name may have been a cross-sectional airway within the nodular density. The nodule still present although seems to be slightly smaller in size. The patient unfortunately continues to smoke cigarettes. He is trying to cut down some. He is not ready to quit. based on the CT scan findings will follow-up with repeat CT scan in 1 years time. Unless, the patient develops any worsening symptoms he is to call for an earlier evaluation. 02/02/2022 the patient is here for pulmonary follow-up visit. Overall the patient continues to do well. He continues to walk regularly and also played golf. he continues to respond positively to the Trelegy. He does use it as prescribed. The patient also has a rescue inhaler. The generic albuterol does not help him as much as Ventolin. I will send Ventolin now substitutions to the pharmacy. We did review his last CT scan of the chest. Was done back in February 2021 demonstrating the interval improvement of the cavitary nodular density and also other pulmonary nodules. He is due for CT scan now. He would like to wait till the springtime. Therefore, will request that then. the patient understands that his CT scan should be done a year from his last 1. Therefore if he changes his mind or if he develops any symptoms we can always requested earlier. Otherwise patient is without any other complaints. 06/13/2021 the patient is here for a pulmonary follow-up visit. The patient overall continues to do well for himself. Continues to have dyspnea with minimal activity. He does try to play golf. He has a hard time going up a flight of stairs or going up an incline. Does developed shortness of breath moderate severity. Usually needs take a break after flight of stairs. The patient does have oxygen that he can use with activity. In the office we did check his oxygen levels with a 6 minute walk test. The patient still desaturates when exerting herself down to 88%. Therefore he will continue to use the oxygen with activity at this time. He did undergo CT scan of the chest demonstrating stable pulmonary nodule which is reassuring. He does have the evidence of the emphysematous changes. He also has significant was a pattern likely secondary to small airways disease. As far as smoking he did try cutting down for about a week. He did well but then he started developing significant arthralgias and then decided to go back to smoking. His arthritis symptoms did improve when he started up again. 01/01/2024 the patient is here for a pulmonary follow-up visit. Overall he is doing well. Back in October, however, the patient did have a respiratory illness. The patient was having worsening chest congestion shortness of breath wheezing chest tightness. Moderate severity. He did start using the nebulizer more often and also had a or prescription for azithromycin and prednisone he did started. He did start feeling better and so therefore he did not call. Currently he is back to his baseline. We did look at imaging studies. His last CT scan through the lung cancer screening was back in 06/12/2022. We did review it. Appears that he has pulmonary nodules although the been stable. He does have some emphysema. He would like to hold off until spring to get his repeat CT scan. I think that is reasonable. I will reach out to the lung cancer screening program to make sure that they can schedule him for then. Otherwise she is going to continue with his current respiratory therapy. He will get the flu shot today. He should also get the Prevnar 20 vaccine. He can do that at the pharmacy at some point. 12/30/2024 the patient is here for pulmonary follow-up visit. Overall he is doing about the same. Still coughing a cough which is productive in nature. Phvp-ca-nvfhffvy severity. Also complains of dyspnea on exertion. He does respond very well to the Trelegy. Although sometimes he does not feel like he can take a deep breath in to be able to take the medication effectively. He also has a nebulizer and albuterol. With a chronic bronchitis component we did talk about assessing him to see if he is a candidate for biologics. No cough will be a good option if his eye eosinophils are elevated. In addition to that he does mentioned in the past that his IgG levels have been low. Therefore will have him get some blood work to assess if he is immunocompromised in any which way. We did talk about adding on macrolide suppression therapy for period of time but the patient would like to hold off at this time. We did review his last CT scan to the lung cancer screening program that was back in June 2024 demonstrating stable nodular densities in the emphysema. On the upper cuts the vocal cord at least on the left side appeared to be little symmetrical but it was very limited cut. He denies any hoarseness. Will reassess with his CAT scan when he gets 1 in June 2025. If he develops any hoarseness or any other changes with his voice we can always consider CT scan of the neck. [facility], [facility] Medical History (Updated 06/27/24 @ 10:19 by Sonia Pedro PA-C) History of prostate cancer Hypogammaglobulinemia Hypertension Hyperlipidemia Pulmonary nodules Chronic respiratory failure COPD (chronic obstructive pulmonary disease) Nicotine dependence, cigarettes, uncomplicated Hemorrhoids Surgical History (Updated 06/27/24 @ 10:18 by Sonia Pedro PA-C) History of radical prostatectomy History of appendectomy History of tonsillectomy Social History Patient Tobacco Use Status: Current everyday Tobacco user Cigarettes Per Day: 12 Years Smoked: (onset 14yo, 1ppd x 50yrs, now 3/4ppd - 40+PYH) Review of Systems Const Denies night sweats ENT Denies change in voice, Denies lip swelling, Denies mouth pain, Reports nasal congestion, Reports nasal discharge and Denies tongue swelling Card Denies chest pain and Reports dyspnea on exertion Resp Reports cough and Reports dyspnea on exertion GI Denies abdominal pain Musc Denies no additional complaints Neuro Denies Neuro-related abnormal movements Psych Denies no additional complaints [place]/Lymph Denies easy bleeding and Denies lymphadenopathy Aller/Immun Denies lip swelling and Denies tongue swelling Physical Exam Vital Signs: Last Vital Signs Pulse 94 12/30/24 10:55 BP 138/84 12/30/24 10:55 Pulse Ox 95 12/30/24 10:55 Oxygen Delivery Method Room Air 12/30/24 10:55 BMI result Body Mass Index 24.9 Const General: alert Neck Neck: Yes normal visual inspection, Yes full ROM and Yes no lymphadenopathy Chest Chest palpation & inspection: normal inspection of the chest Resp Effort & Inspection: normal respiratory effort Auscultation: diminished lung sounds Cardio Rate: regular rate Rhythm: regular rhythm Heart sounds: S1 normal heart sound present and S2 normal heart sound present GI Palpation (GI): Soft to palpation and nontender Auscultation: normal bowel sounds Skin General skin exam: rashes and/or lesions noted Office Procedures Flu Questionnaire Does the patient have a severe egg allergy?: No Does the patient have severe life threatening allergies?: No Does the patient have a fever or illness today?: No Has the patient ever had Guillain-[place] Syndrome?: No Has the patient ever had any past reaction to a flu shot?: No Immunizations Fluarix [id number] (PF) 45 mcg (15 mcg x 3)/0.5 mL IM syringe Performing Provider: Isaias Gray MD Performing Location: [facility] Administered by: Delilah Dang LPN on 12/30/24 11:26 Dose Route Admin Location Dispensed Lot Number Expiration Date [facility] [employer] 0.5 mL IM Right Deltoid 0.5 mL [id number] 09/22/25 [id number] [employer] VIS Given Date VIS Provided VIS Publication Date 12/30/24 Single Vaccine 24 Eligibility Eligibility Date Funding Source Not [facility] Eligible 12/30/24 Private Assessment & Plan Assessment & Plan (1) Pulmonary nodules: Code(s): R91.8 - Other nonspecific abnormal finding of lung field Category: Medical (2) Chronic respiratory failure: Code(s): J96.10 - Chronic respiratory failure, unspecified whether with hypoxia or hypercapnia Category: Medical Qualifiers: Respiratory failure complication: hypoxia Qualified Code(s): J96.11 - Chronic respiratory failure with hypoxia (3) COPD (chronic obstructive pulmonary disease): Code(s): J44.9 - Chronic obstructive pulmonary disease, unspecified Category: Medical Qualifiers: COPD type: chronic bronchitis Chronic bronchitis type: simple Qualified Code(s): J41.0 - Simple chronic bronchitis Plan Continue respiratory : Trelegy [place] as needed LDCT program next year 05/2025 Tobacco cessation Fluticasone nasal spray continue oxygen supplementation with activity and sleep Influenza vaccine today Bloodwork F/U 12 months Orders: Orders Immunoglobulin G Subclasses Today J41.0 - Simple chronic bronchitis Immunoglobulin E Today J41.0 - Simple chronic bronchitis Basic Metabolic Panel Today J41.0 - Simple chronic bronchitis Influenza [id number] Immunization Today Z23 - Encounter for immunization Complete Blood Count Auto Diff Today J41.0 - Simple chronic bronchitis Immunoglobulins,IgG IgA IgM Today J41.0 - Simple chronic bronchitis Medications: Refilled albuterol sulfate 90 mcg/actuation (Ventolin HFA) 2 puffs inhalation QID PRN 18 grams 11RF shortness of breath or wheezing 30 days Coding Level of Care Code Est Pt Level 4 (86423) Complex EM visit Add On G2211 Diagnoses Pulmonary nodules R91.8 Chronic respiratory failure with hypoxia J96.11 Respiratory failure complication: hypoxia Simple chronic bronchitis J41.0 COPD type: chronic bronchitis Chronic bronchitis type: simple Time Spent (min) 17
[2024-12-30 10:55] VITALS: BP 138/84; PULSE 94; O2SAT 95; BMI 24.9
--- OUTSIDE RECORDS SUMMARY | 2024-12-30 13:21 | XMS_ITS | Encounter Summary ---
Author Organization [facility] Address [address] [place] [phone] Phone Care Team Providers Care Firebrick Layer Helper Name Role Phone Domenic Nur MD Primary Care Provider Encounter Details Date Type Department Care Team (Late st Contact Info) Description 02/07/2021 Transcribe Orders [address] [address] Domenic Nur MD [address] [place] [phone] Social History Tobacco Use Types Packs/Day Years Used Date Smoking Tobacco: Some Days Smokeless Tobacco: Never Comments:Smoking History Pac ks/day: <=0.5 Sex and Gender Information Value Date Recorded Sex Assigned at Male 05/24/2022 3:03 PM EST Legal Sex Male 6:21 PM EST Gender Identity Male 05/24/2022 3:03 PM EST Sexual Orientation Straight 05/24/2022 3: 03 PM EST documented as of this encounter Plan of Treatment Not on file documented as of this encounter Visit Diagnoses Not on filedocumented in this encounter Care Teams Firebrick Layer Helper Relationship Specialty Start Date End Date Domenic Nur MD [address] [place] [id number] PCP - General Internal Medicine 02/06/14 documented as of this encounter Additional Source Comments The information contained in this document represents components of the legal health record. It is not the complete legal health record.[facility]
--- OUTSIDE RECORDS SUMMARY | 2024-12-30 13:22 | XMS_ITS | Encounter Summary ---
Author Organization [facility] Address [address] [place] [address] Phone Care Team Providers Care Chicken Vaccinator Name Role Phone Domenic Nur MD Primary Care Provider Encounter Details Date Type Department Care Team (Latest Contact Info) Description 08/17/2015 Transcribe Orders [facility] [address] [place] [address] Maurilio Grossman MD [address] [place] [phone] [email or web address] Malignant neoplasm of prostate (Primary Dx) Social History Tobacco Use Types Packs/Day Years Used Date Smoking Tobacco: Some Days Comments:Smoking History Pac ks/day: <=0.5 Sex and Gender Information Value Date Recorded Sex Assigned at Male 05/24/2022 3:03 PM EST Legal Sex Male 6:21 PM EST Gender Identity Male 05/24/2022 3:03 PM EST Sexual Orientation Straight 05/24/2022 3: 03 PM EST documented as of this encounter Plan of Treatment Not on file documented as of this encounter Results * PSA Diagnostic (Monitoring) ([facility] Only) (08/17/2015 11:03 AM EDT) PSA Monitoring <0.01 0 - 4 ng/mL [facility] 08/17/2015 11:0 3 AM EDT 08/17/2015 2:41 PM EDT us Maurilio Grossman MD LAB BLOOD ORDERABLES Final Result [facility] [address] [place] [address] documented in this encounter Visit Diagnoses Diagnosis Malignant neoplasm of prostate- Primary documented in this encounter Care Teams Chicken Vaccinator Relationship Specialty Start Date End Date Domenic Nur MD [address] [place] [id number] PCP - General Internal Medicine 02/06/14 documented as of this encounter Additional Source Comments The information contained in this document represents components of the legal health record. It is not the complete legal health record.[facility]
--- OUTSIDE RECORDS SUMMARY | 2024-12-30 13:22 | XMS_ITS | Encounter Summary ---
Author Organization [facility] Address [address] [address] Phone Care Team Providers Care Principal Biostatistician Name Role Phone Domenic Nur MD Primary Care Provider [phone] Encounter Details Date Type Department Care Team (Late st Contact Info) Description 02/02/2022 Documentation Only [facility] [address] [place] [phone] Marybeth Lopez Social History Tobacco Use Types Packs/Day Years [...] Care Team (Late st Contact Info) Description 10/23/2025 1:30 PM EDT Office Visit [facility] [address] [place] [address] Bahman Cantu MD [address] [place] [address] [place] [phone] documented as of this encounter Visit Diagnoses Not on filedocumented in this encounter Care Teams Principal Biostatistician Relationship Specialty Start Date End Date Domenic Nur MD [address] [address] PCP - General Internal Medicine 11/04/21 documented as of this encounter
--- OUTSIDE RECORDS SUMMARY | 2024-12-30 13:22 | XMS_ITS | Clinical Summary ---
Author Organization [facility] Address [address] [address] Phone Care Team Providers Care Cleaner And Polisher Name Role Phone Domenic Nur MD Primary Care Provider [phone] Medications sildenafil (VIAGRA) 100 MG tablet Take [...] of prostate 02/27/2012 Overview (10/18/2021): Prostate cancer Encounters Date Type Department Care Team Description 10/17/2024 1:45 PM EDT Office Visit [facility] [address] [place] [address] Bahman Cantu MD Hyperkalemia (Primary Dx); Hypertension 10/01/2024 Orders Only [facility] [address] [place] [phone] Ana Cristina Toure [place] Hyperkalemia (Primary Dx); Hypertension; Albuminuria, not otherwise specified; Stage 3 chronic kidney disease, not otherwise specified (HCC) from Last 3 Months Social History Tobacco Use Types Packs/Day Years [...] Sign Reading Time Taken Comments Blood Pressure 118/66 10/17/2024 1:44 PM EDT Pulse - - Temperature - [...] Visit [facility] [place], [address] [place] [phone] Bahman Cantu MD [address] [place] [address] [place] [phone] Health Maintenance Due Date Last Done Comments Pneumococcal Vaccine: 50+ Ye ars (1 of 2 - PCV) 1981 Colorectal Cancer Screening: Annual FOBT 2011 Colorectal Cancer Screening: Colonoscopy 2011 Colorectal Cancer Screening: Sigmoidoscopy 2011 Influenza Vaccine (#1) 2024 Hepatitis B Vaccine Aged Out No longe r eligible based on patient's age to complete this topic Procedures Procedure Name Priority Date/Time Associated Diagnosis Comments URINE ALBUMIN / CREATININE RATIO Routine 10/10/2024 9:12 AM EDT Hyperkalemia Hypertension Albuminuria, not otherwise specified Stage 3 chronic kidney disease, not otherwise specified (HCC) RENAL FUNCTION PANEL Routine 10/10/2024 9:12 AM EDT Hyperkalemia Hypertension Albuminuria, not otherwise specified Stage 3 chronic kidney disease, not otherwise specified (HCC) CBC AND DIFFERENTIAL Routine 10/10/2024 9:12 AM EDT Hyperkalemia Hypertension Albuminuria, not otherwise specified Stage 3 chronic kidney disease, not otherwise specified (HCC) from Last 3 Months Results * Urine Albumin / Creatinine Ratio (10/10/2024 9:12 AM EDT) Creatinine, Ur 181.5 Not Estab. mg/dL [facility] Albumin, Urine 25.3 Not Estab. ug/mL [facility] Albumin/Creatin ine Ratio 14 0 - 29 mg/g creat [facility] Comment: Normal: 0 - 29 Moderately increased: 30 - 300 Severely increased: >300 Urine Urine specimen obtained by clean catch procedure / Unknown 10/10/2024 9:12 AM EDT 10/10/2024 us Bahman Cantu MD LAB URINE ORDERABLES Final Result [facility] [address] [place] [address] * (ABNORMAL) CBC and Differential (10/10/2024 9:12 AM EDT) WBC 7.7 3.4 - 10.8 x10E3/uL [facility] RBC 5.54 4.14 - 5.80 x10E6/uL [facility] Hemoglobin 17.1 13.0 - 17.7 g/dL [facility] Hematocrit 52.6(H) 37.5 - 51.0 % [facility] MCV 95 79 - 97 fL [facility] MCH 30.9 26.6 - 33.0 pg [facility] MCHC 32.5 31.5 - 35.7 g/dL [facility] RDW 12.2 11.6 - 15.4 % [facility] Platelets 198 150 - 450 x10E3/uL [facility] Neutrophils Relative 62 Not Estab. % [facility] Lymphocytes Relative 24 Not Estab. % [facility] Monocytes 10 Not Estab. % [facility] Eosinophils Relative 3 Not Estab. % [facility] Basophils Relative 1 Not Estab. % [facility] Neutrophils Absolute 4.8 1.4 - 7.0 x10E3/uL [facility] Lymphocytes Absolute 1.9 0.7 - 3.1 x10E3/uL [facility] Monocytes Absolute 0.7 0.1 - 0.9 x10E3/uL [facility] Eosinophils Absolute 0.2 0.0 - 0.4 x10E3/uL [facility] Basophils Absolute 0.1 0.0 - 0.2 x10E3/uL [facility] Immature Granulocytes 0 Not Estab. % [facility] Immature Grans (Absolute) 0.0 0.0 - 0.1 x10E3/uL [facility] Blood Venous blood / Unknown 10/10/2024 9:12 AM EDT 10/10/2024 us Bahman Cantu MD LAB BLOOD ORDERABLES Final Result [facility] [address] [place] [address] * (ABNORMAL) Renal Function Panel (10/10/2024 9:12 AM EDT) Glucose 94 70 - 99 mg/dL [facility] BUN 20 8 - 27 mg/dL [facility] Creatinine 1.07 0.76 - 1.27 mg/dL [facility] eGFR CKD-EPI CR 2020 78 >59 mL/min/1.7 3 [facility] BUN/Creatinine Ratio 19 10 - 24 [facility] Sodium 138 134 - 144 mmol/L [facility] Potassium 5.4(H) 3.5 - 5.2 mmol/L [facility] Chloride 101 96 - 106 mmol/L [facility] Bicarbonate (CO2) 23 20 - 29 mmol/L [facility] Calcium 9.5 8.6 - 10.2 mg/dL [facility] Albumin 4.4 3.9 - 4.9 g/dL [facility] Phosphorus 3.0 2.8 - 4.1 mg/dL [facility] Blood Venous blood / Unknown 10/10/2024 9:12 AM EDT 10/10/2024 us Bahman Cantu MD LAB BLOOD ORDERABLES Final Result [facility] [address] [place] [address] from Last 3 Months Insurance [place] Medicare Care Teams Cleaner And Polisher Relationship Specialty Start Date End Date Domenic Nur MD [address] [facility] [address] [place] [address] PCP - General Internal Medicine 11/04/21
--- OUTSIDE RECORDS SUMMARY | 2024-12-30 13:22 | XMS_ITS | Clinical Summary ---
Author Organization [facility] Address [address] [place] [phone] Phone Care Team Providers Care Investment Accounting Clerk Name Role Phone Domenic Nur MD Primary Care Provider Allergies No known active allergies Medications pravastatin (PRAVACHOL) 10 MG tablet Dose: Not available; Form: Not available; Route: PO; Frequency: Not available; Directions: As directed; Details: Dispense: Tablet(s); Date: 02/24/2014 02/24/2014 Active albuterol (VENTOLIN HFA) 90 mcg/actuation inhaler Inhale 2 puffs into the lungs every 6 (six) hours as needed for wheezing. Active amLODIPine (NORVASC) 5 MG tablet Take 5 mg by mouth daily. Active aspirin 81 mg chewable tablet Take 81 mg by mouth daily. Active fluticasone-umec lidin-vilanter (TRELEGY ELLIPTA) 200-62.5-25 mcg inhaler Inhale 1 puff into the lungs daily. Active Active Problems Problem Noted Date Diagnosed Date Asthma 02/24/2014 Overview (05/16/2014): Asthma Malignant tumor of prostate 02/27/2012 Overview (05/16/2014): Prostate cancer Social History Tobacco Use Types Packs/Day Years Used Date Smoking Tobacco: Some Days Smokeless Tobacco: Never Comments:Smoking History Pac ks/day: <=0.5 Education Answer Date Recorded Are you interested in more education? Not on servando e 07/30/2022 Are you concerned about learning? Not on file 07/30/2022 No 07/30/2022 No 07/30/2022 Digital Access Answer Date Recorded No 08/20/2022 No 08/20/2022 No 08/20/2022 Reliable internet access at home? Not on file 08/20/2022 Device with a working camera? Not on file Sex and Gender Information Value Date Recorded Sex Assigned at Male 05/24/2022 3:03 PM EST Legal Sex Male 6:21 PM EST Gender Identity Male 05/24/2022 3:03 PM EST Sexual Orientation Straight 05/24/2022 3: 03 PM EST Last Filed Vital Signs Vital Sign Reading Time Taken Comments Blood Pressure 133/83 02/26/2019 11:32 AM EST Pulse 78 02/26/2019 11:32 AM EST Temperature 36.3 C (97.4 F) 09/13/2010 12:00 AM EDT Respiratory Rate 16 09/13/2010 12:00 AM EDT Oxygen Saturation 96% 09/13/2010 12:00 AM EDT Inhaled Oxygen Concentration - - Weight 92.1 kg (203 lb) 09/13/2010 12:00 AM EDT lbs. Height 190.5 cm (6' 3 ) 09/13/2010 12:00 AM EDT in. Body Mass Index 25.37 09/13/2010 12:00 AM EDT Plan of Treatment Health Maintenance Due Date Last Done Comments Adult Td,Tdap Booster 1962 LIPID PANEL 1962 DEPRESSION SCREENING 1974 SMOKING Hx and SMOKELESS TOB ACCO SCREENING 1975 HEPATITIS C SCREENING 1980 HIV ONE-TIME SCREENING (18-6 5 YEARS) 1980 PNEUMOCOCCAL VACCINES (50+ y ears) (1 of 2 - PCV) 1981 ZOSTER VACCINES (1 of 2) 1981 COLOGUARD 2007 COLONOSCOPY 2007 COLORECTAL CANCER SCREENING 2007 FIT TEST 2007 FOBT 2007 SIGMOIDOSCOPY 2007 VIRTUAL COLONOSCOPY 2007 RSV VACCINE (1 - Risk 60-74 years 1-dose series) 2022 INFLUENZA VACCINE (#1) 2024 01/21/2020 COVID-19 VACCINE (2 2024-2 6 season) 2024 07/24/2020 HEPATITIS A VACCINES Aged Out No long er eligible based on patient's age to complete this topic HIB VACCINES Aged Out No longer eligi ble based on patient's age to complete this topic MENINGOCOCCAL VACCINES (ACWY) Aged Out No longer eligible based on patient's age to complete this topic MENINGOCOCCAL VACCINES (B) Aged Out N o longer eligible based on patient's age to complete this topic Medical Devices Not on file [facility] [place] [facility] A & B Advance Directives For more information, please contact: [phone] (9AM - 5PM [facility], Sunday-Sunday) Documents on File Type Date Recorded 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 It is not the complete legal health record.[facility]
--- OUTSIDE RECORDS SUMMARY | 2024-12-30 13:22 | XMS_ITS | Encounter Summary ---
Author Organization [facility] Address [address] [place] [phone] Phone Care Team Providers Care Sound Engineer Name Role Phone Domenic Nur MD Primary Care Provider Encounter Details Date Type Department Care Team (Latest Contact Info) Description 01/20/2016 Transcribe Orders [facility] [address] [place] [address] Maurilio Grossman MD [address] [place] [id number] [email or web address] Malignant neoplasm of prostate (Primary Dx) Social [...] this encounter Results * PSA Diagnostic (Monitoring) ([facility] Only) (01/20/2016 10:41 AM EDT) PSA Monitoring <0.01 0 - 4.00 ng/mL [facility] 01/20/2016 10:4 1 AM EDT 01/20/2016 3:18 PM EDT us Maurilio Grossman MD LAB BLOOD ORDERABLES Final Result [facility] [address] [place] [address] documented in this encounter Visit Diagnoses Diagnosis Malignant neoplasm of prostate- Primary documented in this encounter Care Teams Sound Engineer Relationship Specialty Start Date End Date Domenic Nur MD [address] [place] [phone] PCP - General Internal Medicine 02/06/14 documented as of this encounter Additional Source Comments The information contained in this document represents components of the legal health record. It is not the complete legal health record.[facility]
== END 2024-12-30 11:42 | disposition home or self-care (01) ==
LOC: HO.HPS 10:52
PROVIDERS: PCP Internal Medicine; Visit Provider Hospitalist
DX: R91.8 Other nonspecific abnormal finding of lung field (principal); J96.11 Chronic respiratory failure with hypoxia; J41.0 Simple chronic bronchitis; Z23 Encounter for immunization
CPT/HCPCS: 99214; G2211

== ENCOUNTER → 2024-12-30 10:51 | Outpatient (BNVA) | payer MEDICARE, MEDICAID, SELFPAY | PROVIDERS: PCP Internal Medicine; Visit Provider Hospitalist | DX: J41.0 Simple chronic bronchitis (principal); R91.8 Other nonspecific abnormal finding of lung field; J96.11 Chronic respiratory failure with hypoxia; Z23 Encounter for immunization | CPT/HCPCS: 90471; 90656; 99212 ==